=== PATIENT | female | born 1960 | race Caucasian/White ===

== ENCOUNTER 2019-06-22 08:03 | Day surgery (SDC) | payer OTHER ==
[~2019-06-22] VITALS: Ht 175.3 cm; Wt 748.9 kg
[~2019-06-22 08:03] MED LIST: ALBU90OI; BUPR150ER; ESTR2; MONT10T; PANT40; [UNRECOGNIZED DRUG - OTHER]
--- NOTE | 2019-06-22 10:10 | NUR ---
06/22/19 1010 Lisa Lopez DISCHARGE INSTRUCTIONS REVIEWED WITH PT AND SPOUSE. ALL QUESTIONS ANSWERED. VSS AND TOLERATING PO FLUIDS WELL.
== END 2019-06-22 10:01 | disposition home or self-care (01) ==
LOC: ORSCSDS 08:03
PROVIDERS: Internal Medicine Gastroenterology
PROC: 0DBN8ZX Excision of Sigmoid Colon, Via Natural or Artificial Opening Endoscopic, Diagnostic (ICD-10-PCS; principal; 2019-06-22 09:15)
PROC: 0DBP8ZX Excision of Rectum, Via Natural or Artificial Opening Endoscopic, Diagnostic (ICD-10-PCS; principal; 2019-06-22 09:15)
PROC: 0DBK8ZX Excision of Ascending Colon, Via Natural or Artificial Opening Endoscopic, Diagnostic (ICD-10-PCS; principal; 2019-06-22 09:15)
DX: Z12.11 Encounter for screening for malignant neoplasm of colon (principal); D12.2 Benign neoplasm of ascending colon; K63.5 Polyp of colon; K62.1 Rectal polyp; K63.89 Other specified diseases of intestine; J45.909 Unspecified asthma, uncomplicated; Z79.899 Other long term (current) drug therapy
CPT/HCPCS: 88305; J2704; J7120

== ENCOUNTER 2022-08-10 07:19 | Day surgery (SDC) | payer OTHER ==
[~2022-08-10] VITALS: Ht 175.3 cm; Wt 81.4 kg
[2022-08-10] MEDS ORDERED: TOLT2ER PO (08:09)
[2022-08-10 10:41] VITALS: BP 135/81
--- NOTE | 2022-08-10 11:18 | NUR ---
08/10/22 1118 CECILLE GERBER 06/08. JXP GAVE PT NORCO AT 11:08 AM
== END 2022-08-10 11:30 | disposition home or self-care (01) ==
LOC: ORSCSDS 07:19
PROVIDERS: Podiatrist Foot & Ankle Surgery
PROC: 0SGP04Z Fusion of Right Toe Phalangeal Joint with Internal Fixation Device, Open Approach (ICD-10-PCS; principal; 2022-08-10 08:45)
DX: M20.41 Other hammer toe(s) (acquired), right foot (principal); J45.909 Unspecified asthma, uncomplicated; F32.A Depression, unspecified; Z79.899 Other long term (current) drug therapy
CPT/HCPCS: A9270; C1713; J0171; J0690; J1100; J1885; J2250; J2405; J2704; J2795; J3010; J7120

== ENCOUNTER 2022-11-23 06:19 | Day surgery (SDC) | payer OTHER ==
[~2022-11-23] VITALS: Ht 175.3 cm; Wt 80.6 kg
[~2022-11-23 06:19] MED LIST changes: +TOLT2ER PO
[2022-11-23] MEDS ORDERED: CYMBALTA20 M2 PO (06:54)
[2022-11-23] MEDS ORDERED: Aspir 8181 MG PO (06:55)
[2022-11-23] MEDS ORDERED: BUPROPN HCL (06:55)
--- NOTE | 2022-11-23 07:18 | NUR ---
11/23/22 0718 Leslee Whitlock SCOPALAMINE TRANSDERMAL PATCH APPLIED BEHIND THE LEFT EAR ORDERED BY DR. LARA. RN PROVIDED TEACHING TO PATIENT OF SCOPALAMINE PATCH, PT VERBALIZED UNDERSTANDING AND DENIED ANY FURTHER QUESTIONS OR CONCERNS
[2022-11-23 08:21] VITALS: BP 130/86
--- NOTE | 2022-11-23 09:13 | NUR ---
11/23/22 0913 Tamara Roberts NO EKG DONE IN PACU PER DR. LARA'S VERBAL ORDER. PT ABLE TO TOLERATE EATING AND DRINKING WITH NO ISSUES. PT C/O SLIGHT NAUSEA, DECLINED MEDICATION. PT DECLINED PAIN. , KACEY, AT BEDSIDE FOR DISCHARGE INSTRUCTIONS. ALL QUESTIONS ANSWERED. VSS.
== END 2022-11-23 09:13 | disposition home or self-care (01) ==
LOC: ORSCSDS 06:19
PROVIDERS: Podiatrist Foot & Ankle Surgery
PROC: 0SQP0ZZ Repair Right Toe Phalangeal Joint, Open Approach (ICD-10-PCS; principal; 2022-11-23 07:30)
DX: M20.61 Acquired deformities of toe(s), unspecified, right foot (principal); J45.909 Unspecified asthma, uncomplicated; F32.A Depression, unspecified; K21.9 Gastro-esophageal reflux disease without esophagitis; Z79.899 Other long term (current) drug therapy
CPT/HCPCS: A9270; C1713; J0690; J1100; J2405; J2704; J2765; J2795; J3010; J7120

== ENCOUNTER 2023-06-03 08:08 | Day surgery (SDC) | payer OTHER ==
[2023-06-03] VITALS (15 sets, daily range): BP systolic 74–160; BP diastolic 57–121
[~2023-06-03] VITALS: Ht 175.3 cm; Wt 81.7 kg
[~2023-06-03 08:08] MED LIST changes: +Aspir 8181 MG PO; +BUPROPN HCL; +Budeprion Xl300 MG PO; +CYCL10 PO; +CYMBALTA20 M2 PO; +Lactated Ringer's 1,000 ML IV SCH; +MAGCIT300 PO; +MYRBETRIQ25 MG PO
[2023-06-03] MEDS ORDERED: EEMT DS 1.25-21 EACH PO (08:32)
--- NOTE | 2023-06-03 08:54 | NUR ---
Ambulatory in Day Surgery. History, Chart, Medications and Allergies reviewed before start of procedure. Lungs clear T/O to Auscultation. Patient confirms NPO status and agrees with scheduled surgery. Pre-Op teaching done. Pt verbalizes understanding. Patient States Post-Procedure ride home has been arranged.
[2023-06-03] MEDS ORDERED: propofoL 40 ML IV ONE (09:30)
--- NOTE | 2023-06-03 09:39 | NUR ---
06/03/23 0939 Rosa Elena Ray HISTORY, CHART, MEDICATIONS AND ALLERGIES REVIEWED BEFORE START OF PROCEDURE. PATIENT CONFIRMS NPO STATUS AND AGREES WITH SCHEDULED PROCEDURE. 3-LEAD EKG REVIEWED WITH PHYSICIAN PRIOR TO START OF PROCEDURE. MONITOR INTACT WITH CONTINUOUS PULSE OXIMETRY,CAPNOGRAPHY, 3-LEAD EKG, INTERMITTENT BP. SUPPLEMENTAL O2 TO BE TITRATED THROUGHOUT PROCEDURE TO MAINTAIN O2 SATURATION ABOVE 90%. PATIENT DETERMINED TO BE ASA APPROPRIATE FOR PROPOFOL SEDATION PRIOR TO START OF PROCEDURE BY DR. BLAKE. MALLAMPATI CLASS 1 AIRWAY: COMPLETE VISULATIZATION OF THE SOFT PALATE.
--- NOTE | 2023-06-03 10:30 | NUR ---
Patient up to Ambulate independently. Gait steady. Discharge instructions reviewed with patient. Patient verbalizes understanding. Copy given to patient to take home.Discharged to home, out via wheelchair with discharge instructions and belongings on hand.
== END 2023-06-03 10:30 | disposition home or self-care (01) ==
LOC: ORSCMMR 08:08 → ORD 09:00 → ORSCMMR 10:30
PROVIDERS: Internal Medicine Gastroenterology
PROC: 0DBK8ZX Excision of Ascending Colon, Via Natural or Artificial Opening Endoscopic, Diagnostic (ICD-10-PCS; principal; 2023-06-03 09:00)
PROC: 0DBL8ZX Excision of Transverse Colon, Via Natural or Artificial Opening Endoscopic, Diagnostic (ICD-10-PCS; principal; 2023-06-03 09:00)
DX: Z12.11 Encounter for screening for malignant neoplasm of colon (principal); Z86.010 Personal history of colon polyps; D12.3 Benign neoplasm of transverse colon; D12.2 Benign neoplasm of ascending colon; K63.5 Polyp of colon; K63.89 Other specified diseases of intestine; K21.9 Gastro-esophageal reflux disease without esophagitis; J45.909 Unspecified asthma, uncomplicated; F32.A Depression, unspecified; Z79.899 Other long term (current) drug therapy
CPT/HCPCS: 88305; J2704; J7120